=== PATIENT | female | born 2005 | race African-American/Black ===

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

== ENCOUNTER 2025-03-11 21:14 | Emergency (ER) | payer OTHER, SELFPAY ==
--- OUTSIDE RECORDS SUMMARY | 2025-03-11 21:16 | XMS_ITS | Clinical Summary ---
Author Organization [facility] Address [address] [place] [address] Care Team Providers Care Silvering Department Supervisor Name Role Phone Deborah Baker MD Primary Care Provider [phone] Source Comments [facility],non-owned Affiliates and Associated Physician Practices is amultiple site organization consisting of ambulatory clinics and hospital sitesin [place], [place], [place] and [place]. This disclosure is being madepursuant to the Care Everywhere program and may not contain all information available regarding this patient. Last updated 18.[facility] Allergies No known active allergies Medications * Be aware that medications may not be up to date on this document. Alwaysverify current medications with the patient. hydrocortisone (HYTONE) 2.5 % cream Apply to affected area 4 times daily. Active diphenhydrAMINE (BENADRYL) 25 MG tablet Take 1 Tab by mouth every 6 hours as needed for Itching. 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 Gender Identity Not on file Sexual Orientation Not on file Last Filed Vital Signs Vital Sign Reading Time Taken Comments Blood Pressure 96/60 08/17/2018 12:01 PM CDT Pulse 88 08/17/2018 12:01 PM CDT Temperature 36.7 C (98 F) 08/17/2018 12:01 PM CDT Respiratory Rate 18 08/17/2018 12:01 PM CDT Oxygen Saturation 98% 03/16/2016 5:24 PM CDT Inhaled Oxygen Concentration - - Weight 49.4 kg (109 lb) 03/16/2016 5:24 PM CDT Height - - Body Mass Index - - Plan of Treatment Health Maintenance Due Date Last Done Comments HIV SCREENING 2020 HPV VACCINE (1 - 3-dose series) 2020 CHLAMYDIA/GONORRHEA SCREENING 2021 MENINGOCOCCAL (Group B) VACC INE SHARED DECISION-MAKING (1 of 2 - Standard) 2021 HEPATITIS C SCREENING 10/12/2023 COVID-19 VACCINE (1 - 2023-2 5 season) 2024 DTAP/TDAP/TD VACCINES (1 - Tdap) 2024 HEPATITIS B VACCINE (1 of 3 - 19+ 3-dose series) 2024 DEPRESSION SCREENING 11/01/2024 INFLUENZA VACCINE (Season Ended) 2025 ZOSTER VACCINE (1 of 2) 2055 HIB VACCINE Aged Out No longer eligi ble based on patient's age to complete this topic MENINGOCOCCAL GROUPS A/C/Y/W VACCINE Aged Out No longer eligible b ased on patient's age to complete this topic PNEUMOCOCCAL VACCINE Aged Out No long er eligible based on patient's age to complete this topic Insurance [place] [employer] [place] MED[place] [employer] [place] [facility] Care Teams Silvering Department Supervisor Relationship Specialty Start Date End Date Deborah Baker MD [address] [place] [phone] PCP - General Pediatrics 08/17/18
--- OUTSIDE RECORDS SUMMARY | 2025-03-11 21:16 | XMS_ITS | Data Portability ---
Author Organization CHRISTO KAROLEnrico Vidal Address [address] [facility] [place] [address] Care Team Providers Care Woods Superintendent Name Role Phone ELVIS BURNS Primary Care Provider Unavailabl e Assessment No assessment recorded. Plan of Treatment Reminders Order Date Submit Date Provider Last Modified By Organization Details Last Modified Time Details Appointments Prophy 30 2024 03:30P M STACY HUI, DMD Not available Not available Not available Lab lipid panel, serum 2022 023 [facility], [facility] [facility], [address], [place], [address], 06/30/2023 00:07:19 HbA1c (hemoglob in A1c), blood 2022 023 [facility], [address] [facility], [address], [place], [address], 06/30/2023 09:18:20 TSH + free T4, serum 2022 023 [facility], [address], [address], [place], [address], 06/30/2023 09:18:19 lipid panel, serum 2021 022 [facility], [address] [facility], [address], [place], [address], 04/17/2022 08:21:17 HbA1c (hemoglob in A1c), blood 2021 022 HEENA GUT[facility]RE[facility], [address], [address], [place], [address], 04/17/2022 08:21:17 TSH + free T4, serum 2021 022 HEENA GUTIERREZ, [address], [address], [place], [address], 04/17/2022 08:21:16 comprehen sive metabolic 1998 panel, serum or plasma 2021 022 HEENA GAYTANSALVADOR, [address], [address], [place], [address], 04/17/2022 08:21:16 lipid panel, serum 2019 020 HEENA GAYTANSALVADOR, [address], [address], [place], [address], 09/26/2020 07:10:30 TSH + free T4, serum 2019 020 HEENA GUTIERREZ, [address], [address], [place], [address], 09/26/2020 07:10:29 HbA1c (hemoglob in A1c), blood 2019 020 HEENA GAYTANSALVADOR, [address], [address], [place], [address], 09/26/2020 07:10:30 CMP, serum or plasma 2019 020 HEENA GAYTANSALVADOR, [address], [address], [place], [address], 09/20/2020 10:39:31 Referral nutrition ist/dieti jayesh referral 2022 023 [email or web address], [address], [place], [address], 08/25/2023 12:52:01 cardiolog ist referral 2021 022 HEENA [facility], [address] [facility], [place], [address], 05/22/2022 14:03:24 nutrition ist/dieti jayesh referral 2019 020 [email or web address], [address] [facility], [place], [address], 10/08/2020 11:15:32 Procedures None recorded. Surgeries None recorded. Imaging None recorded. Medication Orders hydroxyzi ne HCl 25 mg tablet 2019 020 [id number], [address] [facility], [place], [place], [id number], 04/16/2022 14:10:25 Patient TargetsNo targets recorded. Patient Instructions Encounter Date Encounter Id Patient Instructions Last Modified By Organization Details Last Modified Time 09/19/2020 [id number] when your child IS overweight: care instructions Not available 09/20/2020 10:46:31 your child WHO I S overweight: care instructions Not available 09/20/2020 10:46:31 When You Want to Lose Weight: Care Instructions Not available 09/20/2020 10:46:31 Well Visit, Teens: Care Instructions Not available 09/20/2020 10:46:14 Well Visit, 12 Years to Young Teen: Care Instructions Not available 09/20/2020 10:46:14 Reason for Referral Software Sales Manager/dietitian Refer ral for Obesity Referring Physician: Elvis Burns Steel Sampler, Encounter Date: 09/19/2020 Care Trainer Referral for Hy pertensive disorder Referring Physician: [facility], Encounter Date: 04/16/2022 Software Sales Manager/dietitian Refer ral for Prediabetes Referring Physician: [facility], Encounter Date: 06/29/2023 Results Created Date Observation Date Name Description Value Unit Range Abnormal Flag Note LastModifiedBy Organization Detail LastModifiedTime 09/25/2009/26/2020 TSH + free T4, serum TSH 2.380 uIU/m L 0.450- 4.500 Not Available [facility] ([facility]) [address] [place], [address], 09/26/2020 07:10:29 09/25/20 20 09/26/2020 TSH + free T4, serum T4,free(dire ct) 1.01 NG/dL 0.93-1 .60 Not Available [facility] ([facility]) [address] [place], [address], 09/26/2020 07:10:29 09/25/2009/26/2020 lipid panel , serum cholesterol, total 156 mg/dL 100-16 9 Not Available [facility] ([facility]) [address] [place], [address], 09/26/2020 07:10:30 09/25/20 20 09/26/2020 lipid panel , serum triglyceride s 144 mg/dL 0-89 above high normal Not Available [facility] ([facility]) [address] [place], [address], 09/26/2020 07:10:30 09/25/20 20 09/26/2020 lipid panel , serum HDL cholesterol 37 mg/dL >39 below low normal Not Available [facility] ([facility]) [address] [place], [address], 09/26/2020 07:10:30 09/25/20 20 09/26/2020 lipid panel , serum VLDL cholesterol augustine 26 mg/dL 5-40 Not Available [facility] ([facility]) [address] [place], [address], 09/26/2020 07:10:30 09/25/20 20 09/26/2020 lipid panel , serum LDL chol calc (nih) 93 mg/dL 0-109 Not Available [facility] ([facility]) [address] [place], [address], 09/26/2020 07:10:30 09/25/20 20 09/26/2020 lipid panel , serum comment: RESIDENTIAL NURSE Not Available [facility] ([facility]) [address] [place], [address], 09/26/2020 07:10:30 09/25/20 20 09/26/2020 HbA1c (hemo globi n A1c), blood hemoglobin A1C 5.8 % 4.8-5. 6 above high normal Predi abete s: 5.7 - 6.4 Diabe delfina: >6.4 Glyce kwan contr ol for adult s with diabe delfina: <7.0 Not Available [facility] ([facility]) [address] [place], [address], 09/26/2020 07:10:30 04/16/20 22 04/17/2022 TSH+F REE T4 TSH 4.930 uIU/m L 0.450- 4.500 above high normal Not Available [facility] ([facility]) [address] [place], [address], 04/17/2022 08:21:16 04/16/20 22 04/17/2022 TSH+F REE T4 T4,free(dire ct) 1.00 NG/dL 0.93-1 .60 Not Available [facility] ([facility]) [address] [place], [address], 04/17/2022 08:21:16 04/16/20 22 04/17/2022 COMP. METAB OLIC PANEL (12) glucose 80 mg/dL 65-99 Not Available [facility] ([facility]) [address] [place], [address], 04/17/2022 08:21:16 04/16/20 22 04/17/2022 COMP. METAB OLIC PANEL (12) BUN 8 mg/dL 5-18 Not Available [facility] ([facility]) [address] [place], [address], 04/17/2022 08:21:16 04/16/20 22 04/17/2022 COMP. METAB OLIC PANEL (12) creatinine 0.89 mg/dL 0.57-1 .00 Not Available [facility] ([facility]) [address] [place], [address], 04/17/2022 08:21:16 04/16/20 22 04/17/2022 COMP. METAB OLIC PANEL (12) eGFR TNP mL/mi n/1.7 3 Unabl e to calcu late GFR. Age and/o r gende r not provi ded or age <18 years old. Not Available [facility] ([facility]) [address] [place], [address], 04/17/2022 08:21:16 04/16/20 22 04/17/2022 COMP. METAB OLIC PANEL (12) BUN/creatini ne ratio 9 10-22 below low normal Not Available [facility] ([facility]) [address] [place], [address], 04/17/2022 08:21:16 04/16/20 22 04/17/2022 COMP. METAB OLIC PANEL (12) sodium 142 mmol/ L 134-14 4 Not Available [facility] ([facility]) [address] [place], [address], 04/17/2022 08:21:16 04/16/20 22 04/17/2022 COMP. METAB OLIC PANEL (12) potassium 4.2 mmol/ L 3.5-5. 2 Not Available [facility] ([facility]) [address] [place], [address], 04/17/2022 08:21:16 04/16/20 22 04/17/2022 COMP. METAB OLIC PANEL (12) chloride 107 mmol/ L 96-106 above high normal Not Available [facility] ([facility]) [address] [facility] [place], [address], 04/17/2022 08:21:16 04/16/20 22 04/17/2022 COMP. METAB OLIC PANEL (12) calcium 9.5 mg/dL 8.9-10 .4 Not Available [facility] ([facility]) [address] [facility] [place], [address], 04/17/2022 08:21:16 04/16/20 22 04/17/2022 COMP. METAB OLIC PANEL (12) protein, total 7.0 g/dL 6.0-8. 5 Not Available [facility] ([facility]) [address] [facility] [place], [address], 04/17/2022 08:21:16 04/16/20 22 04/17/2022 COMP. METAB OLIC PANEL (12) albumin 4.6 g/dL 3.9-5. 0 Not Available [facility] ([facility]) [address] [place], [address], 04/17/2022 08:21:16 04/16/20 22 04/17/2022 COMP. METAB OLIC PANEL (12) globulin, total 2.4 g/dL 1.5-4. 5 Not Available [facility] ([facility]) [address] [place], [address], 04/17/2022 08:21:16 04/16/20 22 04/17/2022 COMP. METAB OLIC PANEL (12) A/G ratio 1.9 1.2-2. 2 Not Available [facility] ([facility]) [address] [place], [address], 04/17/2022 08:21:16 04/16/20 22 04/17/2022 COMP. METAB OLIC PANEL (12) bilirubin, total 0.3 mg/dL 0.0-1. 2 Not Available [facility] ([facility]) [address] [facility] [place], [address], 04/17/2022 08:21:16 04/16/20 22 04/17/2022 COMP. METAB OLIC PANEL (12) alkaline phosphatase 74 IU/L 51-121 Not Available [facility]) [address] [facility] [place], [address], 04/17/2022 08:21:16 04/16/20 22 04/17/2022 COMP. METAB OLIC PANEL (12) AST (SGOT) 12 IU/L 0-40 Not Available [facility] ([facility]) [address] [place], [address], 04/17/2022 08:21:16 04/16/20 22 04/17/2022 LIPID PANEL cholesterol, total 179 mg/dL 100-16 9 above high normal Not Available [facility] ([facility]) [address] [place], [address], 04/17/2022 08:21:17 04/16/20 22 04/17/2022 LIPID PANEL triglyceride s 94 mg/dL 0-89 above high normal Not Available [facility] ([facility]) [address] [place], [address], 04/17/2022 08:21:17 04/16/20 22 04/17/2022 LIPID PANEL HDL cholesterol 36 mg/dL >39 below low normal Not Available [facility] ([facility]) [address] [place], [address], 04/17/2022 08:21:17 04/16/20 22 04/17/2022 LIPID PANEL VLDL cholesterol augustine 17 mg/dL 5-40 Not Available [facility] ([facility]) [address] [place], [address], 04/17/2022 08:21:17 04/16/20 22 04/17/2022 LIPID PANEL LDL chol calc ([facility]) 126 mg/dL 0-109 above high normal Not Available [facility] ([facility]) [address] [facility], [place], [address], 04/17/2022 08:21:17 04/16/20 22 04/17/2022 LIPID PANEL comment: RESIDENTIAL NURSE Not Available [facility] ([facility]) [address] [facility], [place], [address], 04/17/2022 08:21:17 04/16/20 22 04/17/2022 HEMOG LOBIN A1C hemoglobin A1C 5.9 % 4.8-5. 6 above high normal Predi abete s: 5.7 - 6.4 Diabe delfina: >6.4 Glyce kwan contr ol for adult s with diabe delfina: <7.0 Not Available [facility] ([facility]) [address] [facility], [place], [address], 04/17/2022 08:21:17 06/29/20 23 06/29/2023 LIPID PANEL cholesterol, total 163 mg/dL 100-16 9 Not Available [facility] Department [address] [place] [address], [address], 06/30/2023 00:07:19 06/29/20 23 06/29/2023 LIPID PANEL triglyceride s 53 mg/dL 0-89 Not Available [facility] Department [address] [place] [address], [address], 06/30/2023 00:07:19 06/29/20 23 06/29/2023 LIPID PANEL HDL cholesterol 46 mg/dL 40-999 Not Available [facility] Department [address] [place], [address], 06/30/2023 00:07:19 06/29/20 23 06/29/2023 LIPID PANEL VLDL cholesterol augustine 11 mg/dL 5-40 Not Available [facility] Department [address] [place] [address], [address], 06/30/2023 00:07:19 06/29/20 23 06/29/2023 LIPID PANEL LDL chol calc ([facility]) 113 mg/dL 0-109 above high normal Not Available [facility] Department [address] [place], [address], 06/30/2023 00:07:19 06/29/20 23 06/30/2023 TSH+F REE T4 TSH 1.590 uIU/m L 0.450- 4.500 Not Available [facility] ([facility]) [address] [place], [address], 06/30/2023 09:18:19 06/29/2006/30/2023 TSH+F REE T4 T4,free(dire ct) 1.00 NG/dL 0.93-1 .60 Not Available [facility] ([facility]) [address] [place], [address], 06/30/2023 09:18:19 06/29/2006/30/2023 HEMOG LOBIN A1C hemoglobin A1C 5.6 % 4.8-5. 6 Predi abete s: 5.7 - 6.4 Diabe delfina: >6.4 Glyce kwan contr ol for adult s with diabe delfina: <7.0 Not Available [facility] ([facility]) [address] [place], [address], 06/30/2023 09:18:20 Result Notes None recorded. Problems Name Problem SNOMED Code Status Onset Date Resolution Date Notes Provider Name and Address Organization Details Recorded Time Seborrheic dermatitis of scalp 160076844 Active 2018 NUZHAT LAGUNAS Attn: Kailee jon,[address] [facility], [place], [address], [place] [facility] 9 19:47:43 Obesity 499474266 Active 2019 NUZHAT LAGUNAS Attn: Kailee jon,[address] [facility], [place], [address], [place] [facility] 0 10:38:35 Acanthosis nigricans 176005490 Active 2021 NUZHAT LAGUNAS Attn: Kailee jon,[address] [facility], [place], [address], [facility] - [facility] 2 14:59:16 Prediabetes 539438694 Active 2021 NUZHAT LAGUNAS Attn: Kailee jon,[address] [facility], [place], [address], [facility] - [facility] 2 14:59:17 Hypertensive disorder 04321687 Active 2021 NUZHAT LAGUNAS Attn: Kailee jon,[address] [facility], [place], [address], [facility] 2 14:59:18 Problem Notes None recorded. Medical Equipment None Reported. Allergies No known drug allergies Medications Name Sig Start Date Stop Date Status Note LastModified by Organization Details LastModified Time sulfamethox azole 800 mg-trimetho prim 160 mg tablet Take 1 tablet twice a day by oral route. 04/16 completed Not Available Not Available Not Available hydroxyzine HCl 25 mg tablet Take 1 tablet twice a day by oral route as needed. 04/16 completed Not Available Not Available Not Available COVID-19 test specimen collection TEST DIRECTED 04/16 completed Not Available Not Available Not Available Vitals Date Recorded Body weight Body mass index (BMI) [Percentile] Per age and sex Body mass index (BMI) Body height Body temperature Heart rate Oxygen saturation Oxygen saturation in Arterial blood by Pulse oximetry Systolic blood pressure Diastolic blood pressure Provider Name and Address Organization Details Last Updated DateTime 0 [address]49.2 9 g 97 % 29.9 kg/m2 167.64 cm 99.1 [degF] 71 /min 98 % 98 % 112 mm[Hg] 80 mm[Hg] Qi Shah MA [facility] 0 14:32:30 Date Recorded Body height Body mass index (BMI) Body mass index (BMI) [Percentile] Per age and sex Body weight Heart rate Oxygen saturation Oxygen saturation in Arterial blood by Pulse oximetry Systolic blood pressure Diastolic blood pressure Provider Name and Address Organization Details Last Updated DateTime 0 170.18 cm 30.4 kg/m2 97 % 87590.0 2 g 78 /min 98 % 98 % 142 mm[Hg] 82 mm[Hg] Kimberly Mckenzie MA [facility] 0 16:26:28 Date Recorded Body height Body mass index (BMI) Body mass index (BMI) [Percentile] Per age and sex Body weight Heart rate Oxygen saturation Oxygen saturation in Arterial blood by Pulse oximetry Systolic blood pressure Diastolic blood pressure Provider Name and Address Organization Details Last Updated DateTime 2 167.64 cm 34 kg/m2 98 % 55189.2 g 90 /min 100 % 100 % 122 mm[Hg] 80 mm[Hg] Qi Shah MA [facility] 2 14:13:05 Date Recorded Body height Body mass index (BMI) Provider Name and Address Organization Details Last Updated DateTime 06/29/2023 167.64 cm 33.7 kg/m2 NUZHAT LAGUNAS Attn: Accounting,[address] [place], [address], [facility] 06/29/2023 14:28:09 Date Recorded Body mass index (BMI) [Percentile] Per age and sex Body weight Heart rate Oxygen saturation Oxygen saturation in Arterial blood by Pulse oximetry Body temperature Systolic blood pressure Diastolic blood pressure Provider Name and Address Organization Details Last Updated DateTime 3 97 % 32426.8 1 g 75 /min 100 % 100 % 99 [degF] 112 mm[Hg] 68 mm[Hg] Qi Shah MA [facility] 3 14:21:52 Date Recorded Body temperature Provider Name a nd Address Organization Details Last Updated DateTime 08/17/2023 98.2 [degF] Sonal hernandez MA [facility] 08/17/2023 10:19:02 Social History Question Answer Notes LastModified by Organizat ion Details LastModified Time Tobacco Smoking Status Never Smoker Nisha Sanz MA null, [facility] 04/13/2019 10:39:09 Animal Exposure? No Informat ion not available 12/11/2019 What Is Your Level Of Caffeine Consumption? None Information not available 01/10/2020 What Type Of Quality Measurement Specialist Do You Use? None Information not available 12/11/2019 In The 14 Days Before Symptom Onset, Have You Had Close Contact With A Laboratory-confir med COVID-19 While That Case Was Ill? No Information not available 04/16/2022 In The 14 Days Before Symptom Onset, Have You Had Close Contact With A Person Who Is Under Investigation For COVID-19 While That Person Was Ill? No Information not available 04/16/2022 Have You Been To An Area Known To Be High Risk For COVID-19? No Information not available 04/16/2022 What Type Of Diet Are You Following? REGULAR Information not available 12/11/2019 Do You Or Have You Ever Used E-cigarettes Or Vape? Never Used Electronic Cigarettes Information not available 12/11/2019 Have There Been Any Changes To Your Family Or Social Situation? No Information no t available 12/11/2019 What Is Your Home Situation? Both Parents Information not available 12/11/2019 Do You Use Insect Repellent Routinely? No Information not available 12/11/2019 Car Seat Type Or Seat Belt? Seat Belt Information not available 12/11/2019 Parent Involvement? Both Parents Involved Information not available 12/11/2019 Riding In Car Front Seat? Yes Information not available 12/11/2019 What Was The Date Of Your Most Recent Tobacco Screening? 04/16/2022 Information not available 04/16/2022 What Is Your Parents' Marital Status? Information not available 12/11/2019 What Is The Name Of Your School? [employer] Information not available 12/11/2019 Do You Have Any Siblings? 3 Information not available 12/11/2019 Do You Have Smoke And Carbon Monoxide Detectors In Your Home? Yes Information not available 12/11/2019 Are You Passively Exposed To Smoke? No Information no t available 12/11/2019 Do You Or Have You Ever Used Smokeless Tobacco? Never Used Smokeless Tobacco Information not available 12/11/2019 How Much Tobacco Do You Smoke? No Information not available 12/11/2019 What Types Of Sporting Activities Do You Participate In? N/a Information not available 12/11/2019 Do You Use Sunscreen Routinely? No Information not available 12/11/2019 On What Date Was Tobacco Cessation Counseling Provided? 04/16/2022 Information not available 04/16/2022 How Many Years Have You Smoked Tobacco? 0 Information not available 12/11/2019 Year In School 8 Informatio n not available 12/11/2019 Sex: Female Functional Status Question Answer Note LastModified by Organizat ion Details LastModified Time What is your exercise level? Occasional Information not available 12/11/2019 Mental Status None recorded. Family History Relationship Description Onset Age of this Age Resolved Age Notes LastModified by Organization Details LastModified Time Mother Migraine [email or web address] Not available 04/13/2019 10:39:07 Medical History Condition Response Coronary Artery Disease N Other N High Blood Pressure N Atrial Fibrillation N Kidney or Bladder Problems N Thyroid Problems N GI Problems N Depression N COPD N Blood Clots N Skin Problems N Anemia N Heart Attack (MS) N Anxiety Disorder N Diabetes N Muscle, Joint, or Bone Problems N Seizures/Epilepsy N Acid Reflux (GERD) N Cancer N Stroke N Asthma N Allergies N High Cholesterol N Hepatitis N Liver Disease N Headaches N Osteoporosis N Heart Failure N Gynecological History Statement/Question Response Flow Moderate Date of LMP 12/18/2019 Frequency of Cycle (Q days) 28 Menses Monthly Y Duration of Flow (days) 5 Age at Menarche 12 Current Control Method None Age at First Child LMP Definite Obstetrics History GPAL:G 0 P 0 0 0 0 Type Value Multiple Births 0 Full Term 0 Induced 0 Spontaneous 0 Premature 0 Living 0 Ectopics 0 Total 0 Immunizations Vaccine Type Date Status Note Provider Nam e and Address Organization Details Recorded Time COVID-19, mRNA, LNP-S, PF, 30 mcg/0.3 mL dose 2 completed Qi Shah [place], [place] [facility] 04/16/2022 14:19:38 COVID-19, mRNA, LNP-S, PF, 30 mcg/0.3 mL dose 2 completed Qi Shah [place] [facility] 04/16/2022 14:19:44 HPV9 7 completed Faith Reyes [place] [facility] 08/17/2023 17:50:37 HPV9 8 completed Faith Re[place] [facility] 08/17/2023 17:50:44 DTaP-Hep B-IPV 6 completed Faith Re[place] [facility] 08/17/2023 17:51:35 DTaP-Hep B-IPV 6 completed Faith Re[place] [facility] 08/17/2023 17:51:40 DTaP-Hep B-IPV 6 completed Faith Re[place] [facility] 08/17/2023 17:51:45 DTaP, unspecified formulation 7 completed Faith [place] [facility] 08/17/2023 17:52:43 DTaP, unspecified formulation 1 completed Faith Re[place] [facility] 08/17/2023 17:52:53 Hep A, ped/adol, 2 dose 7 completed Faith [place] [facility] 08/17/2023 17:53:31 Hep A, ped/adol, 2 dose 7 completed Faith Re[place] [facility] 08/17/2023 17:53:37 Hep B, unspecified formulation 5 completed DELORES [place] [facility] 08/17/2023 17:54:03 Hib (PRP-OMP) 6 completed Faith Re[place] [facility] 08/17/2023 17:54:31 Hib, unspecified formulation 6 completed Faith Re[place] [facility] 08/17/2023 17:54:53 Hib, unspecified formulation 7 completed Faith Re[place] [facility] 08/17/2023 17:55:00 IPV 1 completed Faith [place] [facility] 08/17/2023 17:55:40 meningococcal MCV4P 7 completed Faith [place] [facility] 08/17/2023 17:56:02 MMR 1 completed [place] [facility] 08/17/2023 17:56:28 MMRV 7 completed [place] [facility] 08/17/2023 17:56:50 varicella 1 completed Faith [place] [facility] 08/17/2023 17:57:14 Tdap 7 completed Faith [place] [facility] 08/17/2023 17:57:44 pneumococcal conjugate PCV 7 6 completed Faith Re[place] [facility] 08/17/2023 17:58:04 pneumococcal conjugate PCV 7 6 completed Faith Re[place] [facility] 08/17/2023 17:58:13 pneumococcal conjugate PCV 7 6 completed Faith Re[place] [facility] 08/17/2023 17:58:22 pneumococcal conjugate PCV 7 1 completed Faith Re[place] [facility] 08/17/2023 17:58:29 Influenza, split virus, trivalent, PF 7 completed Faith Re[place] [facility] 08/17/2023 17:59:30 Influenza, split virus, trivalent, PF 8 completed Faith Re[place] [facility] 08/17/2023 17:59:36 meningococcal conjugate quadrivalent, MenACWY-TT (MCV4) 3 completed Codi Garcia MD Attn: Accounting,[address] [facility], [place], [address], [facility] - [facility] 08/17/2023 21:10:21 Past Encounters Encounter ID Performer Location Encounter Start Date Encounter Closed Date Diagnosis/Indication Diagnosis SNOMED-CT Code Diagnosis ICD10 Code Diagnosis Note [id number] NUZHAT LAGUNAS [facility] [address] [place] [address] 04/13/2019 10:25:41 04/14/2019 08:11:36 Seborrheic dermatitis of scalp 553688660 L21.0 Patients mom reports That diandra has had very bad dandruff. Currently controlled with tea tree oil. No dandruff on exam. Mom will call if problem worsens.Ta lked about antifungal treatments available. schedule f/u as needed. Well child [id number] Z00 .129 Patient is going into 8th grade. Eating balanced meals. She is having trouble in math. Exam is normal. advised drinking more waterconti nue active lifestylet old about Ann azar mom and patient to teachers for help if neededVacc viri not available at our site but mom aware [id number] Nataliia Veliz MD [facility] [address] [place] [address] 12/01/2019 10:32:28 12/01/2019 15:17:52 Acute urinary tract infection [id number] N39.0 Nocturnal enuresis 14261 08 N39.44 no leakage with vigorous exercise [id number] Nataliia Veliz MD [facility] [address] [place] [address] 12/11/2019 16:54:43 12/19/2019 10:43:28 History of urinary tract infection [id number] Z87.534 [id number] NUZHAT LAGUNAS [facility] [address] [place] [address] 01/10/2020 14:07:46 01/11/2020 10:28:49 Pruritic rash [id number] L28.2 patient has pruritic rash x 7 days. Told it was viral rash in ER on Wednesday, given zyrtec with little help. She has no similar contacts, known allergies, change in laundry, soap, perfume. Did try benadryl with relief. She has it at home. Plan is to use benadryl to help itch. can belt picker hydroxyzin e if it does nto work but understand s not to use all at same time, one at a time. - hydrate skin- benadryl for itch- f/u if not improving [id number] NUZHAT LAGUNAS [facility] [address] [place] [address] 09/19/2020 16:00:11 09/21/2020 18:58:59 Obesity [id number] E66.9 BMI 30.4 With elevated BP. 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 Doing well in school. On exam patient has elevated BP and bmi. We discussed diet, excercise. Will send to [facility] Checking labs. Needs vaccines. Will take her to [facility] department . We need a copy of vaccines. - f/u 3 months- dental visitAntic ipatory Guidance reviewed including: Discipline and the importance of consistenc y, parents being adult role models for good behavior. Assigning appropriat e chores and household duties. Reinforcin g honesty, respect need for privacy. Limiting television and screen time <2 hours/day. Healthy Nutrition: limit sugary drink and junk food, increase fruits and vegetables . Daily physical activity. Brushing teeth and the importance of 6 month dental cleaning. Dangers and risks of smoking, drugs, and alcohol consumptio n. Preparatio n of hormonal and body changes related to puberty. Healthy sleep; getting 8-10 hours nightly. Increased blood pressure [id number] R03.0 patient with elevated BP of 142/82. Discussed diet with mom and patient. She is eating too many chips and snacking food. She does eat her veggies and fruit.- enterprise architect manager- labs- f/u in 3 months [id number] NUZHAT LAGUNAS [facility] [address] [place] [address] 04/16/2022 13:54:13 04/21/2022 10:03:28 Obesity 195577431 E66.9 BMI 34 With elevated BP sine 2020. has not been seen since this time. - enterprise architect manager not seen. mom agrees to go. order resent- did discuss diet in office- f/u 3 months Hypertensive disorder 38 606634 I10 BP remains elevated. - cardiology referral- advised heart healthy diet- advised increased exercise Prediabetes [id number] R7 3.03 5.8 in .9 2021 spent time discussing diet, reading food labels, eating heart healthy meals, physical activity. f/u w/in 3 months. Acanthosis nigricans 402 491113 L83 History an d physical examination, school [id number] Z02.0 transferri to [employer]. doing well in school. needs physical. [facility] Anticipato ry Guidance reviewed including: Discipline and the importance of consistenc y, parents being adult role models for good behavior. Assigning appropriat e chores and household duties. Reinforcin g honesty, respect need for privacy. Limiting television and screen time <2 hours/day. Healthy Nutrition: limit sugary drink and junk food, increase fruits and vegetables . Daily physical activity. Brushing teeth and the importance of 6 month dental cleaning. Dangers and risks of smoking, drugs, and alcohol consumptio n. Preparatio n of hormonal and body changes related to puberty. Healthy sleep; getting 8-10 hours nightly. [id number] NUZHAT LAGUNAS [facility] [address] [place] [address] 06/29/2023 14:05:14 07/01/2023 14:01:23 Obesity 081087006 E66.9 BMI 33.7- enterprise architect manager not seen. mom agrees to go. order resent- did discuss diet in office- f/u 3 months History an d physical examination, school [id number] Z02.0 doing well in school. needs physical. mom will bring vaccines from [facility]. Anticipato ry Guidance reviewed including: Discipline and the importance of consistenc y, parents being adult role models for good behavior. Assigning appropriat e chores and household duties. Reinforcin g honesty, respect need for privacy. Limiting television and screen time <2 hours/day. Healthy Nutrition: limit sugary drink and junk food, increase fruits and vegetables . Daily physical activity. Brushing teeth and the importance of 6 month dental cleaning. Dangers and risks of smoking, drugs, and alcohol consumptio n. Preparatio n of hormonal and body changes related to puberty. Healthy sleep; getting 8-10 hours nightly. Prediabetes [id number] R7 3.03 5.8 in .9 2021 spent time discussing diet, reading food labels, eating heart healthy meals, physical activity. f/u w/in 3 months. Acanthosis nigricans 402 351722 L83 [id number] MD Soto Sawyer (Peds) [address] [place] [address] 08/17/2023 09:59:31 08/20/2023 12:57:02 Immunization due [id number] Z28.39 Health Concerns Section Related Observation LastModified by Organization Detai ls LastModified Time None Recorded Concern Status LastModified by Organization Details LastModified Time None Recorded Advance Directives Directive None Recorded Payers Encounter Date Sequence Insurance Name Policy Number Policy Torres Covered Member ID Torres Member ID Guarantor Name 01/10/2020 2 [place] Diandra Gómez [id number] Elan Persaud 01/10/2020 1 [place] [id number] Leslie Gómez [id number] [employer]ishna Hung 09/19/2020 2 [place] [facility] [place] Diandra Gómez [id number] Elan Persaud 09/19/2020 1 [place] [id number] Leslie Gómez [id number] Elan Persaud 04/16/2022 1 [place] ON [place] AFTER 2020 (MEDICAID REPLACEMENT - HMO) Diandra Gómez [id number] Elan Persaud 06/29/2023 1 [place] 2020 [place] - [place]MO) Diandra Gómez [id number] Elan Persaud 08/17/2023 1 [employer] [place] ON OR AFTER 2020 (MEDICAID REPLACEMENT - HMO) Diandra Gómez [id number] Elan Persaud Notes Date Note Type Note Provider Name and Address Organization Details Recorded Time 0 text/html Pediatric Rash/Skin LesionReported bypatient.Location:face; chest; abdomen Quality:not painful;itchy Severity:mild Context:no new detergents or skin products; no contacts with similar rash Aggravating Factors:nothing makes it worse Associated Symptoms:no fever; no cold symptoms rash started on face and chest. Ronnie wednesday and told it was viral rash and sent home with zyrtec but not helping much. rash is itchy. no drainage from rahs. no pain, no similar rashin past, no contacts with simlar rash. Mom thinks it was her mattress and she has replaced it. NUZHAT LAGUNAS Attn: Accounting,[address] [facility], [place], [address], [facility] 01/10/2020 15:28:01 0 text/html patient presents with mom and brother for physical no concerns NUZHAT LAGUNAS Attn: Accounting,[address] [facility], [place], [address], [place] [facility] 09/20/2020 10:49:16 2 text/html patient presents with mom and brother for physical no concerns today. states she has lost 10 lbs by eating less processed foods. NUZHAT LAGUNAS Attn: Accounting,[address] [facility], [place], [address], [facility] 04/17/2022 09:46:31 3 text/html Diandra is a 17 YO AAF pmhxz prediabetes, childhood obesity, hypercholesterolemia who presents for well child She states she was working out and will be getting back in to it. She avoid sweet drinks but does have juices. She avoid processed foods. She did well last year with her grades. She is a senior. She is sleeping well. no concerns today. denies depression, illicit drug use, or being sexually active NUZHAT LAGUNAS Attn: Accounting,[address] [place], [address], [facility] 06/30/2023 08:43:01 OBGyn Episode No OBEpisode recorded.
[2025-03-11 21:18] VITALS: BP 134/78; PULSE 83; RESP 20; TEMP 36.8; O2SAT 100
--- NOTE | 2025-03-11 21:30 | ED_ITS ---
HPI - General Adult General Chief complaint: Wound/Laceration Stated complaint: Right ring finger laceration History of Present Illness HPI narrative: This is a 19-year-old female presenting with finger injury. She was using a vegetable [place] and peeled part of her pinky finger. Wounds continue to ooze over last several hours she came to the ER for evaluation. No other injuries. Tetanus is up-to-date. Related Data Allergies Allergy/AdvReac Type Severity Reaction Status Date / Time No Known Allergies Allergy Verified 03/11/25 21:15 Exam Narrative: APPEARANCE: No apparent distress. Head: atraumatic. EYES: EOMI, NOSE: Atraumatic NECK: Trachea midline RESPIRATORY: No increased rate of breathing CARDIOVASCULAR: RRR, ABDOMINAL: Non-distended MUSCULOSKELETAl: No obvious deformities NEURO: Alert. Moving 4/4 extremities SKIN:: 1 cm x 1/2 cm shallow shave injury to the left pinky. PSYCHIATRIC: Normal affect Course Vital Signs Vital signs: Vital Signs Temperature 98.3 F 03/11/25 21:18 Pulse Rate 83 03/11/25 21:18 Respiratory Rate 03/11/25 21:18 Blood Pressure 134/78 03/11/25 21:18 Pulse Oximetry 100 03/11/25 21:18 Oxygen Delivery Room Air 03/11/25 21:18 Temperature 98.3 F 03/11/25 21:18 Pulse Rate 83 03/11/25 21:18 Respiratory Rate 20 03/11/25 21:18 Blood Pressure 134/78 03/11/25 21:18 Pulse Oximetry 100 03/11/25 21:18 Oxygen Delivery Room Air 03/11/25 21:18 Medical Decision Making [facility] Narrative Medical decision making narrative: -Course: 19-year-old presenting with shallow shave injury to her left pinky finger. No left repair to be performed. Patient and mother educated on basic wound care. Tetanus up-to-date. Patient discharged. Vital Signs Vital Signs: Vital Signs Temperature 98.3 F 03/11/25 21:18 Pulse Rate 83 03/11/25 21:18 Respiratory Rate 03/11/25 21:18 Blood Pressure 134/78 03/11/25 21:18 Pulse Oximetry 100 03/11/25 21:18 Oxygen Delivery Room Air 03/11/25 21:18 Temperature 98.3 F 03/11/25 21:18 Pulse Rate 83 03/11/25 21:18 Respiratory Rate 20 03/11/25 21:18 Blood Pressure 134/78 03/11/25 21:18 Pulse Oximetry 100 03/11/25 21:18 Oxygen Delivery Room Air 03/11/25 21:18 Discharge Plan Discharge Clinical Impression: Abrasion Patient Disposition: Home Condition: Stable Instructions: Antibiotic Form, Skin Avulsion (ED) Additional Instructions: Please keep the wound clean and dry. You can use bacitracin underneath the Band-Aid. Please allow it to air out for 1-2 hours a day. Develops signs of infection such redness pain please return to ED for re-evaluation. Use [id number] Motrin Tylenol for pain control. Patient Language: Haitian Prescriptions: No Action cetirizine [All Day Allergy (cetirizine)] 10 mg tablet 10 mg PO DAILY Qty: 30 0RF Follow-up/Referrals: UNKNOWN,DOCTOR [Primary Care Provider] -
--- OUTSIDE RECORDS SUMMARY | 2025-03-11 21:45 | XMS_ITS | Clinical Summary ---
Author Organization [facility] [employer] Address [address] [place] [address] Care Team Providers Care Casting And Curing Operator Name Role Phone Deborah Baker MD Primary Care Provider [phone] Source Comments [facility] [employer],non-owned Affiliates and Associated Physician Practices is amultiple site organization consisting of ambulatory clinics and hospital sitesin [place], [place], [place] and [place]. This disclosure is being madepursuant to the Care Everywhere program and may not contain all information available regarding this patient. 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
== END 2025-03-11 21:47 | disposition home or self-care (01) ==
LOC: ANHED 21:44
PROVIDERS: Emergency Provider Emergency Medicine
DX: S61.217A Laceration without foreign body of left little finger without damage to nail, initial encounter (principal); W27.4XXA Contact with kitchen utensil, initial encounter; Y93.G1 Activity, food preparation and clean up
CPT/HCPCS: 99281